=== PATIENT | male | born 1970 | race American Indian/Alaskan Native ===

== ENCOUNTER 2016-05-31 21:42 | Inpatient (IN) | payer SELFPAY ==
[2016-05-31] MEDS ORDERED: ATIVAN IV ONE (21:59)
--- NOTE | 2016-05-31 22:05 | Emergency Department Report ---
HPI - General Time Seen by Provider: 05/31/16 21:53 - HPI HPI: Room 3 The patient is a 45-year-old male presenting with chief complaint of seizure. The patient was reportedly at work sitting down when he had a generalized tonic- clonic seizure lasting possibly 1 minute according to coworkers. EMS was called and upon arrival the patient was postictal. Patient was subsequently transported to the ED. Patient states she's never had a seizure before in his life. Patient denies drug use or daily alcohol use. Patient currently denies any complaints Location: Central nervous system Duration: 1 minute Quality: Generalized tonic-clonic Severity: Moderate Modifying factors: [see above] Context: [see above] Mode of transportation: [not driving] ED Past Medical Hx - Past Medical History Previous Medical History?: No - Surgical History Past Surgical History?: No - Family History Family history: no significant - Social History Smoking Status: Never Smoker (one pack per day) Substance Use Type: None (denies illicit drug use), Alcohol (occasional) - Medications Home Medications: Home Medications Medication Instructions Recorded Confirmed Last Taken Type No Known Home Medications [No 05/31/16 05/31/16 Unknown History Reported Home Medications] ED Review of Systems ROS: Stated complaint: SEIZURE Other details as noted in HPI Comment: All other systems reviewed and negative Constitutional: denies: chills, fever Eyes: denies: eye pain, eye discharge, vision change Respiratory: denies: cough, shortness of breath, wheezing Cardiovascular: denies: chest pain, palpitations Endocrine: no symptoms reported Gastrointestinal: denies: abdominal pain, nausea, diarrhea Genitourinary: denies: urgency, dysuria Musculoskeletal: denies: back pain, joint swelling, arthralgia Skin: denies: rash, lesions Neurological: other (seizure). denies: headache, weakness, paresthesias Psychiatric: denies: anxiety, depression Hematological/Lymphatic: denies: easy bleeding, easy bruising Physical Exam - Physical Exam Physical Exam: GENERAL: The patient is well-developed well-nourished male lying on stretcher not appearing to be in acute distress. [] HEENT: Normocephalic. Atraumatic. Extraocular motions are intact. Patient has moist mucous membranes. NECK: Supple. No meningitic signs are noted. Trachea midline CHEST/LUNGS: Clear to auscultation. There is no respiratory distress noted. HEART/CARDIOVASCULAR: Regular. There is no tachycardia. There is no gallop rub or murmur. ABDOMEN: Abdomen is soft, nontender. Patient has normal bowel sounds. There is no abdominal distention. SKIN: There is no rash. There is no edema. There is no diaphoresis. NEURO: The patient is awake, alert, and oriented. The patient is cooperative. The patient has no focal neurologic deficits. The patient has normal speech and gait. Cranial nerves II through XII grossly intact, no drift rips equal bilaterally. No tremulousness noted MUSCULOSKELETAL: There is no evidence of acute injury. ED Medical Decision Making - Lab Data Result diagrams: 05/31/16 22:03 05/31/16 22:03 Laboratory Tests 05/31/16 05/31/16 05/31/16 22:03 22:03 22:03 WBC 5.6 RBC 3.10 L Hgb 11.1 L Hct 31.7 L MCV 102 H MCH 36 H MCHC 35 H RDW 14.8 Plt Count 237 Sodium 137 Potassium 3.5 L Chloride 96.3 L Carbon Dioxide 21 L Anion Gap 23 BUN 11 Creatinine 0.8 Estimated GFR > 60 BUN/Creatinine Ratio 13.75 Glucose 133 H Calcium 8.6 Magnesium 1.2 L TSH 3.820 Free T4 0.93 - Radiology Data Radiology results: report reviewed (CT head), image reviewed (CT head) CT head (read by radiologist)-no abnormalities are seen - Differential Diagnosis seizure, epilepsy Critical care attestation.: If time is entered above; I have spent that time in minutes in the direct care of this critically ill patient, excluding procedure time. ED Disposition Clinical Impression: Seizure, Hypomagnesemia Disposition: OP ADMITTED IP TO THIS HOSP Is pt being admited?: Yes Does the pt Need Aspirin: Yes Condition: Fair Time of Disposition: 23:16 (hospitalist notified)
[2016-05-31 22:38] LABS: Hematocrit 31.7 % (35.5-45.6); Hemoglobin 11.1 gm/dl (11.8-15.2); Mean Corpuscular HGB Conc 35 % (32-34); Mean Corpuscular Hemoglobin 36 pg (28-32); Mean Corpuscular Volume 102 fl (84-94); Platelet Count 237 K/mm3 (140-440); Red Cell Distribution Width 14.8 % (13.2-15.2); White Blood Count 5.6 K/mm3 (4.5-11.0)
--- NOTE | 2016-05-31 22:38 | Cat Scan Report ---
FINAL REPORT PROCEDURE: CT HEAD/BRAIN WO CON TECHNIQUE: Computerized tomography of the head was performed without contrast material. HISTORY: new-onset seizure COMPARISON: No prior studies are available for comparison. FINDINGS: The visualized portions of the paranasal sinuses are clear. Mastoid air cells are clear. There is no calvarial fracture. There is no hydrocephalus. No acute intracranial hemorrhage or mass effect is seen. There is no evidence of acute CVA.. IMPRESSION: No abnormalities are seen.
[2016-05-31 22:52] LABS: Urine Drugs of Abuse Note Disclamer
[2016-05-31 22:54] LABS: BUN/Creatinine Ratio 13.75; Blood Urea Nitrogen 11 mg/dL (9-20); Calcium 8.6 mg/dL (8.4-10.2); Carbon Dioxide 21 mmol/L (22-30); Chloride 96.3 mmol/L (98-107); Glucose 133 mg/dL (75-100); Magnesium 1.2 mg/dL (1.7-2.3); Potassium 3.5 mmol/L (3.6-5.0); Sodium 137 mmol/L (137-145)
[2016-05-31 22:56] LABS: Anion Gap 23 mmol/L
[2016-05-31] MEDS ORDERED: MAGNESIUM SULFATE 2GM/50ML 50 ML IV ONE (23:12)
[2016-05-31 23:32] LABS: Blastocytes % (Manual) 0 %
[2016-05-31 23:33] LABS: Diff Status Complete; Platelet Estimate Consistent w Auto; RBC Morphology Normal
[2016-06-01] MEDS ORDERED: ATIVAN IV PRN (00:29)
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
--- NOTE | 2016-06-01 01:10 | Admit Criteria Form ---
Admission Criteria Documentation: SEIZURE Clinical Indications for Admission to Inpatient Care (Place 'X' for any and all applicable criteria): Admission is indicated for seizure and ANY ONE of the following(1)(2)(3)(4)(5): [ X]I. Inpatient admission required rather than observation care (Also use Seizure: Observation Care Criteria as appropriate) because of ANY ONE of the following: [ ]a) Altered mental status that is severe or persistent [ ]b) New focal neurologic deficit that is severe or persistent [ ]c) Metabolic disorder (eg, hypoglycemia, hyponatremia) that is severe or persistent [ ]d) Recurrent seizure [ ]e) Outpatient antiseizure regimen cannot be established (eg , patient cannot tolerate medication, initiation requires inpatient care) [ ]f) Need for ongoing intravenous infusion of antiseizure medication [ ]g) Cardiac arrhythmias of immediate concern [ ]h) Cerebral bleeding, hydrocephalus, or vasospasm monitoring (14) [ ]i) Increased intracranial pressure or cerebral edema monitoring (15) [ X]j) Other treatment or monitoring requiring inpatient admission [ ]II. Status epilepticus [A] or repetitive seizures not controlled with emergent treatment (6)(8) [ ]III. Brain disorder (eg, tumor, edema, and hydrocephalus) that requiring monitoring or intervention available only at inpatient level of care. [ ]IV. Brain insult (eg, severe trauma, stroke, drug toxicity, or withdrawal) that requires monitoring or intervention available only at inpatient level of care (10)(11) Extended stay beyond goal length of stay may be needed for (22) [ ]a) Complications of status epilepticus [ ]b) Refractory status epilepticus [ ]c) Etiology-specific therapy for conditions such as [employer] INTERMEDIARY infection, head injury,eclampsia, severe metabolic abnormalities, and brain tumor [ ]d) Residual neurologic damage, [ ]e) Initiation of significant change to anticonvulsant treatment [ ]f) Older patients (65 years or older) [ ]g) Patient requiring intubation (eg, to protect airway) The original [email or web address] content created by [email or web address] has been revised. The portions of the content which have been revised are identified through the use of italic text or in bold, and [facility] [employer] has neither reviewed nor approved the modified material. All other unmodified content is copyright [facility] [employer]. Please see references footnoted in the original [facility] edition 2016 Admission Criteria Met: Yes
[2016-06-01] MEDS ORDERED: PNEUMOVAX 23 IM ONE (05:36)
[2016-06-01] MEDS ORDERED: FLUARIX QUAD 2016-2017(36 MOS+) IM ONE (05:36)
[2016-06-01] MEDS ORDERED: MILK OF MAGNESIA PO PRN (09:26)
[2016-06-01] MEDS ORDERED: DULCOLAX PR PRN (09:26)
[2016-06-01] MEDS ORDERED: ZOFRAN IV PRN (09:26)
[2016-06-01] MEDS ORDERED: TYLENOL PO PRN (09:26)
[2016-06-01] MEDS: LOVENOX SUB-Q SCH (13:43)
[2016-06-02 05:37] LABS: Basophils % (Auto) 0.6 % (0.0-1.8); Eosinophils % (Auto) 0.8 % (0.0-4.3); Hematocrit 32.9 % (35.5-45.6); Hemoglobin 11.3 gm/dl (11.8-15.2); Mean Corpuscular HGB Conc 34 % (32-34); Mean Corpuscular Hemoglobin 36 pg (28-32); Mean Corpuscular Volume 104 fl (84-94); Platelet Count 196 K/mm3 (140-440); Red Blood Count 3.17 M/mm3 (3.65-5.03); Red Cell Distribution Width 14.3 % (13.2-15.2); White Blood Count 6.9 K/mm3 (4.5-11.0)
[2016-06-02 05:55] LABS: BUN/Creatinine Ratio 21.42; Blood Urea Nitrogen 15 mg/dL (9-20); Carbon Dioxide 25 mmol/L (22-30); Chloride 101.8 mmol/L (98-107); Glucose 99 mg/dL (75-100); Potassium 3.8 mmol/L (3.6-5.0); Sodium 140 mmol/L (137-145)
[2016-06-02 05:59] LABS: Anion Gap 17 mmol/L
[2016-06-02] MEDS: LOVENOX SUB-Q SCH (10:11)
--- NOTE | 2016-06-02 11:10 | Progress Note ---
Assessment and Plan Assessment and plan: 1. New onset seizure CT head with no acute abnormality Electrolytes within normal limits except for magnesium; will recheck Neurology consulted Will also obtain EEG 2. Hypomagnesemia Recheck 3. Macrocytic anemia Denies alcohol abuse Check B12 and folate 4. Tobacco abuse Counseled regarding importance of quitting (10 minutes) 5. DVT prophylaxis Lovenox History Interval history: Doing well, no complaints Hospitalist Physical - Constitutional Vitals: Temp Pulse Resp BP Pulse Ox 98.9 F 88 16 127/87 100 06/02/16 07:55 06/02/16 07:55 06/02/16 07:55 06/02/16 07:55 06/02/16 09:23 General appearance: Present: no acute distress, well-nourished - EENT Eyes: Present: PERRL, EOM intact. Absent: scleral icterus, conjunctival injection - Neck Neck: Present: supple, normal ROM. Absent: masses or JVD - Respiratory Respiratory effort: normal Respiratory: bilateral: CTA, negative: rales, rhonchi, wheezing - Cardiovascular Rhythm: regular Heart Sounds: Present: S1 & S2. Absent: systolic murmur - Extremities Extremities: no ischemia - Abdominal General gastrointestinal: soft, non-tender, non-distended, normal bowel sounds - Integumentary Integumentary: Present: warm, dry. Absent: jaundice, rash - Psychiatric Psychiatric: cooperative - Neurologic Neurologic: CNII-XII intact, no focal deficits Results - Labs CBC & Chem 7: 06/02/16 05:07 06/02/16 05:07 Labs: Laboratory Last Values WBC 6.9 K/mm3 (4.5-11.0) 06/02/16 05:07 RBC 3.17 M/mm3 (3.65-5.03) L 06/02/16 05:07 Hgb 11.3 gm/dl (11.8-15.2) L 06/02/16 05:07 Hct 32.9 % (35.5-45.6) L 06/02/16 05:07 MCV 104 fl (84-94) H 06/02/16 05:07 MCH 36 pg (28-32) H 06/02/16 05:07 MCHC 34 % (32-34) 06/02/16 05:07 RDW 14.3 % (13.2-15.2) 06/02/16 05:07 Plt Count 196 K/mm3 (140-440) 06/02/16 05:07 Lymph % (Auto) 19.9 % (13.4-35.0) 06/02/16 05:07 [place] % (Auto) 7.1 % (0.0-7.3) 06/02/16 05:07 Eos % (Auto) 0.8 % (0.0-4.3) 06/02/16 05:07 Baso % (Auto) 0.6 % (0.0-1.8) 06/02/16 05:07 Lymph # 1.4 K/mm3 (1.2-5.4) 06/02/16 05:07 [place] # 0.5 K/mm3 (0.0-0.8) 06/02/16 05:07 Eos # 0.1 K/mm3 (0.0-0.4) 06/02/16 05:07 Baso # 0.0 K/mm3 (0.0-0.1) 06/02/16 05:07 Add Manual Diff Complete 05/31/16 22:03 Total Counted 100 05/31/16 22:03 Seg Neutrophils % 71.6 % (40.0-70.0) H 06/02/16 05:07 Seg Neuts % (Manual) 72.0 % (40.0-70.0) H 05/31/16 22:03 Band Neutrophils % 0 % 05/31/16 22:03 Lymphocytes % (Manual) 22.0 % (13.4-35.0) 05/31/16 22:03 Reactive Lymphs % (Man) 0 % 05/31/16 22:03 Monocytes % (Manual) 6.0 % (0.0-7.3) 05/31/16 22:03 Metamyelocytes % 0 % 05/31/16 22:03 Myelocytes % 0 % 05/31/16 22:03 Promyelocytes % 0 % 05/31/16 22:03 Blast Cells % 0 % 05/31/16 22:03 Nucleated RBC % Not Reportable 05/31/16 22:03 Seg Neutrophils # 4.9 K/mm3 (1.8-7.7) 06/02/16 05:07 Seg Neutrophils # Man 4.0 K/mm3 (1.8-7.7) 05/31/16 22:03 Band Neutrophils # 0.0 K/mm3 05/31/16 22:03 Lymphocytes # (Manual) 1.2 K/mm3 (1.2-5.4) 05/31/16 22:03 Abs React Lymphs (Man) 0.0 K/mm3 05/31/16 22:03 Monocytes # (Manual) 0.3 K/mm3 (0.0-0.8) 05/31/16 22:03 Eosinophils # (Manual) 0.0 K/mm3 (0.0-0.4) 05/31/16 22:03 Basophils # (Manual) 0.0 K/mm3 (0.0-0.1) 05/31/16 22:03 Metamyelocytes # 0.0 K/mm3 05/31/16 22:03 Myelocytes # 0.0 K/mm3 05/31/16 22:03 Promyelocytes # 0.0 K/mm3 05/31/16 22:03 Blast Cells # 0.0 K/mm3 05/31/16 22:03 WBC Morphology Not Reportable 05/31/16 22:03 Hypersegmented Neuts Not Reportable 05/31/16 22:03 Hyposegmented Neuts Not Reportable 05/31/16 22:03 Hypogranular Neuts Not Reportable 05/31/16 22:03 Smudge Cells Not Reportable 05/31/16 22:03 Toxic Granulation Not Reportable 05/31/16 22:03 Toxic Vacuolation Not Reportable 05/31/16 22:03 Dohle Bodies Not Reportable 05/31/16 22:03 Pelger-Huet Anomaly Not Reportable 05/31/16 22:03 Kaye Rods Not Reportable 05/31/16 22:03 Platelet Estimate Consistent w auto 05/31/16 22:03 Clumped Platelets Not Reportable 05/31/16 22:03 Plt Clumps, EDTA Not Reportable 05/31/16 22:03 Large Platelets Not Reportable 05/31/16 22:03 Giant Platelets Not Reportable 05/31/16 22:03 Platelet Satelliting Not Reportable 05/31/16 22:03 Plt Morphology Comment Not Reportable 05/31/16 22:03 RBC Morphology Normal 05/31/16 22:03 Dimorphic RBCs Not Reportable 05/31/16 22:03 Polychromasia Not Reportable 05/31/16 22:03 Hypochromasia Not Reportable 05/31/16 22:03 Poikilocytosis Not Reportable 05/31/16 22:03 Anisocytosis Not Reportable 05/31/16 22:03 Microcytosis Not Reportable 05/31/16 22:03 Macrocytosis Not Reportable 05/31/16 22:03 Spherocytes Not Reportable 05/31/16 22:03 Pappenheimer Bodies Not Reportable 05/31/16 22:03 Sickle Cells Not Reportable 05/31/16 22:03 Target Cells Not Reportable 05/31/16 22:03 Tear Drop Cells Not Reportable 05/31/16 22:03 Ovalocytes Not Reportable 05/31/16 22:03 Helmet Cells Not Reportable 05/31/16 22:03 [place] Bodies Not Reportable 05/31/16 22:03 [place] Rings Not Reportable 05/31/16 22:03 [place] Cells Not Reportable 05/31/16 22:03 Bite Cells Not Reportable 05/31/16 22:03 Crenated Cell Not Reportable 05/31/16 22:03 Elliptocytes Not Reportable 05/31/16 22:03 Acanthocytes (Spur) Not Reportable 05/31/16 22:03 Rouleaux Not Reportable 05/31/16 22:03 Hemoglobin C Crystals Not Reportable 05/31/16 22:03 Schistocytes Not Reportable 05/31/16 22:03 Malaria parasites Not Reportable 05/31/16 22:03 Kurt Bodies Not Reportable 05/31/16 22:03 Hem Pathologist Commnt No 05/31/16 22:03 Sodium 140 mmol/L (137-145) 06/02/16 05:07 Potassium 3.8 mmol/L (3.6-5.0) 06/02/16 05:07 Chloride 101.8 mmol/L (98-107) 06/02/16 05:07 Carbon Dioxide 25 mmol/L (22-30) 06/02/16 05:07 Anion Gap 17 mmol/L 06/02/16 05:07 BUN 15 mg/dL (9-20) 06/02/16 05:07 Creatinine 0.7 mg/dL (0.8-1.5) L 06/02/16 05:07 Estimated GFR > 60 ml/min 06/02/16 05:07 BUN/Creatinine Ratio 21.42 % 06/02/16 05:07 Glucose 99 mg/dL (75-100) 06/02/16 05:07 Calcium 8.0 mg/dL (8.4-10.2) L 06/02/16 05:07 Magnesium 1.2 mg/dL (1.7-2.3) L 05/31/16 22:03 TSH 3.820 mlU/mL (0.270-4.200) 05/31/16 22:03 Free T4 0.93 ng/dL (0.76-1.46) 05/31/16 22:03 Urine Opiates Screen Presumptive negative 05/31/16 22:19 Urine Methadone Screen Presumptive negative 05/31/16 22:19 Ur Barbiturates Screen Presumptive negative 05/31/16 22:19 Ur Phencyclidine Scrn Presumptive negative 05/31/16 22:19 Ur Amphetamines Screen Presumptive negative 05/31/16 22:19 U Benzodiazepines Scrn Presumptive negative 05/31/16 22:19 Urine Cocaine Screen Presumptive negative 05/31/16 22:19 U Marijuana (THC) Screen Presumptive negative 05/31/16 22:19 Drugs of Abuse Note Disclamer 05/31/16 22:19 - Imaging and Cardiology CT Scan - head: report reviewed (no acute abnormality) Imaging and Cardiology: EEG pending
[2016-06-03] MEDS: LOVENOX SUB-Q SCH (10:00)
--- NOTE | 2016-06-03 13:15 | Consultation ---
History of Present Illness Consult date: 06/03/16 Chief complaint: sz History of present illness: This is a 45 YO M who came in with new onset seizure. Pt denied any precipitating factors. Is back at baseline and has been for some time now. Past History Past Surgical History: No surgical history Social history: Lives alone Family history: hypertension Medications and Allergies Allergies Allergy/AdvReac Type Severity Reaction Status Date / Time No Known Allergies Allergy Verified 05/31/16 22:07 Home Medications Medication Instructions Recorded Confirmed Last Taken Type No Known Home Medications [No 05/31/16 06/01/16 Unknown History Reported Home Medications] Active Meds: Active Medications Acetaminophen (Tylenol) 650 mg PO Q4H PRN PRN Reason: Pain MILD(1-3)/Fever >100.5/ARREDONDO Last Admin: 06/02/16 10:11 Dose: 650 mg Bisacodyl (Dulcolax) 10 mg ID QDAY PRN PRN Reason: Constipation unrelieved by MOM Enoxaparin Sodium (Lovenox) 40 mg SUB-Q QDAY MARYBETH Last Admin: 06/03/16 10:00 Dose: Not Given Lorazepam (Ativan) 1 mg IV Q4H PRN PRN Reason: Seizures Magnesium Hydroxide (Milk Of Magnesia) 30 ml PO Q4H PRN PRN Reason: Constipation Ondansetron HCl (Zofran) 4 mg IV Q8H PRN PRN Reason: N/V unrelieved by Reglan Review of Systems Neurological: seizures Physical Examination - Vital Signs Vital Signs: Vital Signs Temp Pulse Resp BP Pulse Ox 98.4 F 95 H 18 97/66 100 05/31/16 22:01 05/31/16 22:01 05/31/16 22:01 05/31/16 22:01 05/31/16 22:01 - EENT EENT: Present: PERRL - Respiratory Respiratory: Present: lungs clear - Cardiovascular Cardiovascular: Present: regular rate - Neurologic Cranial nerve examination: V1/V2/V3 grossly intact, face symmetric, tongue midline Speech examination: intact Motor examination - right side: 5/5: biceps, triceps, wrist flexion, wrist extension, webbing seamer pound net, hip flexors, knee extensors, dorsiflexion, toe extension (EHL) , plantarflexion Motor examination - left side: 5/5: biceps, triceps, wrist flexion, wrist extension, webbing seamer pound net, hip flexors, knee extensors, dorsiflexion, toe extension (EHL) , plantarflexion Reflexes: 1+: ankle, bicep, knee, tricep - Additional Exam Additional Exam: CT head normal Results - Laboratory Findings CBC and BMP: 06/02/16 05:07 06/02/16 05:07 Abnormal Lab Findings: Abnormal Labs 06/02/16 06/02/16 06/02/16 05:07 05:07 17:36 RBC 3.17 L Hgb 11.3 L Hct 32.9 L MCV 104 H MCH 36 H Seg Neutrophils % 71.6 H Creatinine 0.7 L Calcium 8.0 L Magnesium 1.6 L Assessment and Plan This is a 45 YO m with new onset seizure, cause unknown. Recommend: EEG result pending MRI Brain with and without georgie No AEd's if work up is negative No driving for 6 mts as per [place] law. Would also advise against operating heavy machinery right away. All of this was discussed with the patient. Thank you for this consult. Call with questions.
--- NOTE | 2016-06-03 15:31 | Discharge Summary ---
Providers - Providers Date of Admission: 06/01/16 00:31 Date of discharge: 06/03/16 Attending physician: ASHLEY VALDEZ Primary care physician: HUMAN FACTORS ADVISOR LEAD Hospitalization Condition: Fair Hospital course: This is a 45-year-old man with no significant medical problems brought to the emergency room because while he was at work he suffered a generalized tonic- clonic seizure. It was not clear how long the seizure lasts for, patient was confused when he presented to ER, but eventually his mental status back to baseline. Patient was evaluated by head CT on admission which did not show any acute intracraneal process. neurology evaluated him and recommended to get a MRI. He had EEG and MRI of brain which did not show any abnormality. He admitted that he has a history of binge drinking and smokes about a pack a day. No further seizure like activity was noted while he was in hospital. He was discharge home in stable condition. He was not prescribe antiseizure medication as this was his first episode. He was also advised not to drive for six months. Discharge Diagnosis: 1. New onset seizure CT head with no acute abnormality He also had EEG and MRI brain was unremarkable 2. Hypomagnesemia, Replaced 3. Macrocytic anemia B12 and folate level normal likely due to alcohol abuse 4. Tobacco abuse Counseled regarding importance of quitting 5. Alcohol abuse counselled for quitting Disposition: DISCHARGED TO HOME OR SELFCARE Time spent for discharge: 32 minutes Core Measure Documentation - Palliative Care Palliative Care/ Comfort Measures: Not Applicable - Core Measures Any of the following diagnoses?: none Exam - Physical Exam Narrative exam: GENERAL: well-developed and well-nourished lying on bed appeared to be in no discomfort. HEENT: Normocephalic. Atraumatic. No conjunctival congestion or icterus. Patient has moist mucous membranes. NECK: Supple. Trachea midline. CHEST/LUNGS: Clear to auscultated bilaterally, breathing nonlabored. No wheezes crackles or rhonchi. HEART/CARDIOVASCULAR: Regular in rate and rhythm. S1 and S2 positive. ABDOMEN: Abdomen is soft, nontender. Patient has normal bowel sounds. SKIN: There is no rash. Warm and dry. NEURO: No focal motor deficit. Follows command. MUSCULOSKELETAL: No joint effusion or tenderness. EXTRIMITY: No edema, no cyanosis or clubbing. PSYCH: Cooperative. - Constitutional Vitals: Temp Pulse Resp BP Pulse Ox 98.0 F 94 H 20 143/92 97 06/02/16 23:30 06/02/16 23:30 06/02/16 23:30 06/02/16 23:30 06/02/16 23:30 Plan Activity: fall precautions, other (no driving for 6 months) Weight Bearing Status: Non-Weight Bearing Diet: regular Follow up with: PRIMARY CARE, [Primary Care Provider] - 7 Days Forms: Work/School Release Form
--- NOTE | 2016-06-03 17:12 | Magnetic Resonance Report ---
FINAL REPORT EXAM: MR BRAIN WO CON HISTORY: seizure TECHNIQUE: MRI brain without contrast PRIORS: None. FINDINGS: There is normal signal throughout the brain parenchyma. No evidence for brain edema pattern or mass effect. Ventricles and sulci are within normal limits. No evidence for acute intra-axial or extra-axial hemorrhage. No evidence for acute restriction on diffusion-weighted study. Brainstem and posterior fossa structures are unremarkable. IMPRESSION: Negative. No focal abnormality identified
[2016-06-03 17:38] VITALS: BP 128/83
== END 2016-06-03 17:55 | disposition home or self-care (01) | DRG 101 ==
LOC: ED 21:42 → 3A 06-01 00:31
PROVIDERS: ADMIT Internal Medicine; ATTEND Internal Medicine
DX: G40.909 Epilepsy, unspecified, not intractable, without status epilepticus (principal); E83.42 Hypomagnesemia; D53.9 Nutritional anemia, unspecified; F17.210 Nicotine dependence, cigarettes, uncomplicated; Z98.890 Other specified postprocedural states; Z82.49 Family history of ischemic heart disease and other diseases of the circulatory system
CPT/HCPCS: 36415; 70450; 70551; 80048; 80307; 82607; 82747; 83735; 84439; 84443; 85007; 85025; 90686; 90732; 95819; 96365; 96375; J1650; J2060; J3475